=== PATIENT | female | born 1955 | race Caucasian/White ===

== ENCOUNTER → 2020-09-27 11:10 | Outpatient (CLI) | payer MEDICARE, SELFPAY ==
--- NOTE | ~2020-09-27 | DEXA_ITS ---
Bone Density Report Name: Sima Peres Age: 65 Sex: Female Ethnicity: White Date of : 1955 Indication: postmenopausal; screening for osteoporosis; parental hip fracture; prior fracture; Referring Provider: Lawrence Saxena Study: Bone densitometry was performed. Exam Date: September 27, 2020 Accession number: [id number] Bone Density: Region BMD T-score Z-score Classification AP Spine (L1-L4) 0.812 -2.1 -0.2 Osteopenia Femoral Neck (Left) 0.598 -2.3 -0.6 Osteopenia Total Hip (Left) 0.703 -2.0 -0.6 Osteopenia Femoral Neck (Right) 0.548 -2.7 -1.1 Osteoporosis Total Hip (Right) 0.632 -2.5 -1.2 Osteoporosis Total Hip Mean 0.668 -2.3 -0.9 Osteopenia World Health Organization criteria for BMD impression classify patients as: Normal (T-score at or above -1.0), Osteopenia (T-score between -1.0 and -2.5), or Osteoporosis (T-score at or below -2.5). 10-year Fracture Risk: FRAX not reported because: Some T-score for Spine Total or Hip Total or Femoral Neck at or below -2.5 Clinical Information Provided by Patient: Has had a low trauma fracture Parent has had a hip fracture Has used the following medications: Vitamin D, Calcium Patient maximum height was 62 Menopause Age: 53 No regular weight bearing exercise Does not regularly consume dairy products Drinks caffeinated beverages Onset of menses at age 11 Number of children 3 Impression: The patient has established osteoporosis, based on the Right Femoral Neck T-score and the existence of a prior fracture. The patient has risk factors, including: parental hip fracture, previous fracture. Discussion: HIGH RISK OF FRACTURE. BONE DENSITY IS UNDESIRABLY LOW AT ONE OR MORE SKELETAL SITES, CONSISTENT WITH POSTMENOPAUSAL OSTEOPOROSIS. This patient's lowest T-score, in a patient who has previously fractured, meets the World Health Organization's (WHO) criteria for severe osteoporosis. In untreated patients, the risk of osteoporotic fracture increases approximately two-fold for each 1.0 SD decrease in T-score. Low bone density is not the only risk factor for fracture; also consider factors such as patient's age, frailty or poor health, risk of falling, risk of injury, previous osteoporotic fracture, family history of osteoporosis, cigarette smoking, low body weight, etc. Not everyone with low bone mineral density has osteoporosis; osteomalacia and other metabolic bone disorders should also be considered. Patients who have osteoporosis should be evaluated for specific diseases and conditions (secondary causes) that may cause or contribute to bone loss. The [place] [employer] Endocrinologists (AACE) and National Osteoporosis Foundation (NOF) recommend pharmacologic intervention for all postmenopausal women whose T-score is in this range. The patient should follow a he
--- NOTE | ~2020-09-27 | MM_ITS ---
EXAMINATION: [place] [facility] [place] HISTORY: Screening mammogram TECHNIQUE: Craniocaudal and mediolateral oblique 3-D tomosynthesis images were obtained and synthetic 2-D images were generated. CAD analysis was submitted and interpreted. COMPARISON: 08/13/2019, 09/26/2016, 06/08/1950 BREAST PARENCHYMAL COMPOSITION: The breasts are almost entirely fatty. FINDINGS: There is no evidence of suspicious mass, calcification, or architectural distortion to sugg est malignancy in either breast. There has been no suspicious interval change. IMPRESSION: 1. No mammographic evidence of malignancy. 2. Recommend routine screening mammography in one year. BI-RADS Category 1: Negative Reviewed, dictated and finalized at location A. OLOGY RESIDENT
== END ==
PROVIDERS: PCP Family Medicine; Visit Provider Physician Assistant Medical
DX: Z12.31 Encounter for screening mammogram for malignant neoplasm of breast (principal); Z78.0 Asymptomatic menopausal state; M85.88 Other specified disorders of bone density and structure, other site; M85.852 Other specified disorders of bone density and structure, left thigh; M85.851 Other specified disorders of bone density and structure, right thigh; M81.0 Age-related osteoporosis without current pathological fracture
CPT/HCPCS: 77063; 77067; 77080

== ENCOUNTER 2021-07-06 11:17 | Emergency (ER) | payer MEDICARE, SELFPAY ==
--- NOTE | ~2021-07-06 | XR_ITS ---
EXAMINATION: XR foot RT min 3V DATE: 07/06/2021 11:50 INDICATION: Lateral right foot pain. Injury 8 days ago. TECHNIQUE: 4 views of right foot were obtained. COMPARISON: None. FINDINGS: Bone alignment is normal. No acute fracture. There are old healed fractures of fourth and f ifth proximal phalanges. There is diffuse osteopenia. There is screw fixation of medial malleolus. Th ere is mild osteoarthritis of first metatarsophalangeal joint and some of the interphalangeal joints. There are enthesophytes at the posterior and plantar aspects of calcaneal tuberosity. IMPRESSION: 1. Mild polyarticular osteoarthritis. Reviewed, dictated and finalized at location A.
[2021-07-06 11:33] VITALS: BP 106/70; PULSE 54; RESP 16; TEMP 36.5; O2SAT 98
--- NOTE | 2021-07-06 12:02 | ED.LOWEXIN ---
HPI - Extremity Injury (Lower) General Chief Complaint: Extremity Injury, Lower Stated Complaint: Right foot Pain Time Seen by Provider: 07/06/21 12:02 Source: patient Mode of arrival: ambulatory Limitations: no limitations History of Present Illness HPI Narrative: Sima Peres is a 65 yo female with a diagnosis of bipolar disorder and anxiety who [facility] with complaints of right lateral foot pain after rolling her ankle 8 days ago and aggravating applied dancing wedges her son's wedding this last weekend-we will move ankle and toes but continues to have pain on the lateral side of foot Related Data Home Medications Medication Instructions Recorded Confirmed aripiprazole 2 mg tablet 2 mg PO DAILY 11/02/19 07/06/21 topiramate 100 mg tablet 50 mg PO DAILY tablet 11/02/19 07/06/21 escitalopram oxalate 10 mg PO DAILY 07/06/21 07/06/21 Allergies Allergy/AdvReac Type Severity Reaction Status Date / Time No Known Allergies Allergy Verified 07/06/21 12:02 Review of Systems Review of Systems: CONSTITUTIONAL: Denies fever, chills, sweats. EYES: Denies visual changes, redness, discharge. ENT: Denies rhinorrhea, congestion, sore throat, otalgia. CARDIOVASCULAR: Denies chest pain, palpitations, edema. RESPIRATORY: Denies dyspnea, wheezing, cough GASTROINTESTINAL: Denies abdominal pain, nausea, vomiting, diarrhea. GENITOURINARY: Denies dysuria, hematuria, abnormal discharge SKIN: Denies rash or itching. NEUROLOGIC: Denies numbness, or focal weakness. PSYCHIATRIC: Denies anxiety or depression. Right foot pain PMFSH Past Medical History Medical History Broken arm (~03/2016) left radial History of chicken pox History of measles History of mumps Surgical History Surgical History H/O section H/O section History of gastric bypass History of knee replacement Hx of cholecystectomy Family History Family History Sibling No chronic problems Father , age 90 Depression, Onset Age: 90 Alzheimer's disease Mother Patient's mother is in good health Hearing loss Sibling Cancer Sibling No chronic problems Sibling No chronic problems Son No chronic problems Daughter No chronic problems Other Family history of alcoholism Family history of glaucoma Malignant neoplasm of prostate Social History Social History Alcohol intake: current Comments At time of signature, I agree with nursing past medical, surgical, social and family history. There is no relevant family history pertinent to the presenting complaint. Exam Narrative: GENERAL: This is a well-nourished, well-developed patient, in mild distress. HEAD: normocephalic, atraumatic. EYES: Sclera clear/white. Vision is grossly intact. EARS: External ears normal, . Hearing grossly intact. NOSE: External nose normal without nasal discharge, nares without redness, no rhinorrhea. THROAT: Mucous membranes moist, NECK: Neck supple, CARDIOVASCULAR: Regular rate and rhythm without murmurs, gallops, or rubs. RESPIRATORY: Clear to auscultation. Breath sounds equal bilaterally. No wheezes, rales, or rhonchi. GASTROINTESTINAL: Abdomen soft, SKIN: warm, intact with no suspicious lesions or rash, good texture and turgor. NEURO: awake, alert, and oriented to person, place and time. There were no obvious focal neurologic abnormalities. Steady gait EXTREMITIES: Normal range of motion. Right lateral foot pain able to move toes and ankle without difficulty, here is slightly tender and swollen 2+ pedal pulse BACK: Nontender without deformity Course Course Emergency Course: Patient comes with complaints of foot pain on the lateral side after rolling ankle 8 days ago and then aggravating it by doing a lot of p
== END 2021-07-06 12:35 | disposition home or self-care (01) ==
PROVIDERS: Emergency Provider Nurse Practitioner; PCP Family Medicine
DX: S93.601A Unspecified sprain of right foot, initial encounter (principal); X50.9XXA Other and unspecified overexertion or strenuous movements or postures, initial encounter; F31.9 Bipolar disorder, unspecified; F41.9 Anxiety disorder, unspecified
CPT/HCPCS: 73630; 99213; G0463

== ENCOUNTER → 2021-11-06 15:57 | Outpatient (CLI) | payer MEDICARE, SELFPAY ==
--- NOTE | ~2021-11-06 | MM_ITS ---
EXAMINATION: MM screening [facility] BI w rod HISTORY: Screening TECHNIQUE: Craniocaudal and mediolateral oblique 3-D tomosynthesis images were obtained and synthetic 2-D images were generated. CAD analysis was submitted and interpreted. COMPARISON: Comparison to multiple prior studies sequentially, with oldest reviewed study dated 08/12. BREAST PARENCHYMAL COMPOSITION: There are scattered areas of fibroglandular density. FINDINGS: There are prior surgical changes of breast reduction. There is no evidence of suspicious ma ss, calcification, or architectural distortion to suggest malignancy in either breast. There has been no suspicious interval change. IMPRESSION: 1. No mammographic evidence of malignancy. 2. Recommend routine screening mammography in one year. BI-RADS Category 1: Negative Reviewed, dictated and finalized at location A. OYEE RELATIONS ADMINISTRATOR
== END ==
PROVIDERS: PCP Family Medicine; Visit Provider Family Medicine
DX: Z12.31 Encounter for screening mammogram for malignant neoplasm of breast (principal)
CPT/HCPCS: 77063; 77067

== ENCOUNTER 2022-03-14 02:06 | Day surgery (SDC) | payer MEDICARE, SELFPAY ==
[2022-03-05 13:33] VITALS: BMI 26.1
[2022-03-14 12:42] VITALS: BP 150/79; PULSE 77; RESP 16; TEMP 36.7; O2SAT 98; BMI 26.2
[2022-03-14] MEDS: LACTATED RINGERS 1,000 ML 150 ML IV CONT (13:04)
--- NOTE | 2022-03-14 13:08 | PM.HPGS ---
History of Present Illness History of Present Illness Consent: Risks, benefits, and alternatives have been discussed and questions answered. Patient agrees to proceed with procedure. Chief complaint: hx of colon polyps Narrative: Sima Peres is a 66 year old female Referred for colon cancer screening. she has had polyps removed in the past. Review of Systems Review of Systems: All systems reviewed & are unremarkable except as noted in HPI and below PMFSH Past Medical History Medical History Broken arm (~03/2016) left radial History of chicken pox History of measles History of mumps Surgical History Surgical History H/O section H/O section History of gastric bypass History of knee replacement Hx of cholecystectomy Family History Family History Sibling No chronic problems Father , age 90 Depression, Onset Age: 90 Alzheimer's disease Mother Patient's mother is in good health Hearing loss Sibling Cancer Sibling No chronic problems Sibling No chronic problems Son No chronic problems Daughter No chronic problems Other Family history of alcoholism Family history of glaucoma Malignant neoplasm of prostate Social History Social History Smoking status: Former smoker Alcohol intake: former Alcohol use details: former alcohol abuse, 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 does not want to list Living arrangements: with family Spiritual care concerns: No Meds Home Medications and Allergies Home Medications Medication Instructions Recorded Confirmed Type aripiprazole 2 mg tablet 2 mg PO DAILY 11/02/19 03/14/22 History topiramate 100 mg tablet 50 mg PO DAILY tablet 11/02/19 03/14/22 History escitalopram oxalate 10 mg PO DAILY 07/06/21 03/14/22 History efinaconazole 10 % topical 1 applic TOPICAL QHS 336 Days #8 ml 03/01/22 03/14/22 Rx solution with applicator Allergies Allergy/AdvReac Type Severity Reaction Status Date / Time No Known Allergies Allergy Verified 03/14/22 12:51 Vital Signs Vital Signs - 24 hr 03/14/22 12:42 Temperature 36.7 C Pulse Rate 77 Respiratory Rate 16 Blood Pressure 150/79 H Pulse Oximetry 98 Exam Resp: Auscultation: clear to auscultation bilaterally Cardio: Rate: regular rate Rhythm: regular rhythm GI: GI Palp: Yes Soft to palpation and No Tenderness to palpation present (GI) Assessment and Plan Assessment and plan (1) Colon cancer screening: Code(s): Z12.11 - Encounter for screening for malignant neoplasm of colon Status: Acute Assessment and Plan: Colonoscopy with possible biopsy or polypectomy or cautery or injection of substances.
--- NOTE | 2022-03-14 13:12 | WPDANESEPPF ---
Anes - Initial Pre Proc Eval Procedure: Operation Date: 03/14/22 14:00 Proposed Procedures p Screening Colonoscopy - Varinder Grant MD Date/Time: 03/14/22 13:12 Surgeon: Varinder Grant MD Pre Op Diagnosis: hx of colon polyps Patient Data Age: 66 Gender: F Height: 1.55 m Weight: 62.8 kg Last Vital Signs Temp 36.7 C 03/14/22 12:42 Pulse 77 03/14/22 12:42 Resp 16 03/14/22 12:42 BP 150/79 H 03/14/22 12:42 Pulse Ox 98 03/14/22 12:42 Allergies Allergy/AdvReac Type Severity Reaction Status Date / Time No Known Allergies Allergy Verified 03/14/22 12:51 Home Medications Medication Instructions Recorded Confirmed Type aripiprazole 2 mg tablet 2 mg PO DAILY 11/02/19 03/14/22 History topiramate 100 mg tablet 50 mg PO DAILY tablet 11/02/19 03/14/22 History escitalopram oxalate 10 mg PO DAILY 07/06/21 03/14/22 History efinaconazole 10 % topical 1 applic TOPICAL QHS 336 Days #8 ml 03/01/22 03/14/22 Rx solution with applicator Patient hx anesthesia problems: none Family hx anesthesia problems: none Results Review: All pre-operative results and documents have been reviewed as part of the pre-operative evaluation. [facility] Past Medical History Medical History Broken arm (~03/2016) left radial History of chicken pox History of measles History of mumps Surgical History Surgical History H/O section H/O section History of gastric bypass History of knee replacement Hx of cholecystectomy Family History Family History Sibling No chronic problems Father , age 90 Depression, Onset Age: 90 Alzheimer's disease Mother Patient's mother is in good health Hearing loss Sibling Cancer Sibling No chronic problems Sibling No chronic problems Son No chronic problems Daughter No chronic problems Other Family history of alcoholism Family history of glaucoma Malignant neoplasm of prostate Social History Social History Smoking status: Former smoker Alcohol intake: former Alcohol use details: former alcohol abuse, 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 does not want to list Living arrangements: with family Spiritual care concerns: No Anes - Eval Final PreProcedure Day of Procedure 03/14/22 13:12 Patient weight: overweight Heart: regular rate and rhythm Lungs: clear to auscultation and normal air movement Airway: Mallampati scale class II Neurological: alert and oriented Last oral intake: >/= 8 hours ASA classification: III Emergent: no Anesthetic plan: proceed Anesthesia type and monitoring: general GIVS and standard monitoring Results Review: All pre-operative results and documents have been reviewed as part of the pre-operative evaluation. Informed Consent: The patient's anesthetic plan and its attendant risks and benefits were discussed with the patient/family/POA. Questions were solicited and answers provided to the satisfaction of the patient/family/POA.
[2022-03-14 13:35] VITALS: BP 116/56; PULSE 58; RESP 20; O2SAT 98
[2022-03-14 13:45] VITALS: BP 116/63; PULSE 55; RESP 22; O2SAT 99
[2022-03-14 13:55] VITALS: BP 114/60; PULSE 52; RESP 22; O2SAT 99
== END 2022-03-14 14:26 | disposition home or self-care (01) ==
PROVIDERS: PCP Family Medicine; Visit Provider Internal Medicine Gastroenterology
PROC: 0DJD8ZZ Inspection of Lower Intestinal Tract, Via Natural or Artificial Opening Endoscopic (ICD-10-PCS; CPT 45378; principal; 2022-03-14 14:00)
DX: Z12.11 Encounter for screening for malignant neoplasm of colon (principal); D12.5 Benign neoplasm of sigmoid colon; K57.30 Diverticulosis of large intestine without perforation or abscess without bleeding; Z98.84 Bariatric surgery status; Z96.659 Presence of unspecified artificial knee joint
CPT/HCPCS: 45385; 88305; J2704; J7120

== ENCOUNTER → 2022-11-13 12:22 | Outpatient (CLI) | payer MEDICARE, SELFPAY ==
--- NOTE | ~2022-11-13 | XR_ITS ---
XR chest 2V DATE: 11/13/2022 12:49 INDICATION: Midsternal chest pain TECHNIQUE: 2 views COMPARISON: None FINDINGS: Normal heart size. No hilar or mediastinal enlargement. Bilateral hyperinflation, suggestin g COPD. No pulmonary infiltrate or consolidation, pleural effusion or pulmonary vascular congestion o r pneumothorax. Status post cholecystectomy. Osteopenia. IMPRESSION: Bilateral hyperinflation; no active cardiopulmonary disease Osteopenia Status post cholecystectomy Reviewed, dictated and finalized at location L. ICE TEAM LEAD
== END ==
PROVIDERS: PCP Family Medicine; Visit Provider Physician Assistant
DX: R07.89 Other chest pain (principal); R91.8 Other nonspecific abnormal finding of lung field; M85.88 Other specified disorders of bone density and structure, other site; Z90.49 Acquired absence of other specified parts of digestive tract
CPT/HCPCS: 71046

== ENCOUNTER → 2023-01-22 14:43 | Outpatient (CLI) | payer MEDICARE, SELFPAY ==
--- NOTE | ~2023-01-22 | MM_ITS ---
EXAMINATION: MM screening [facility] BI w rod HISTORY: Screening mammogram TECHNIQUE: Craniocaudal and mediolateral oblique 3-D tomosynthesis images were obtained and synthetic 2-D images were generated. CAD analysis was submitted and interpreted. COMPARISON: 11/06/2021, 09/27/2020 bilateral screening mammogram examinations BREAST PARENCHYMAL COMPOSITION: There are scattered areas of fibroglandular density. FINDINGS: There is no evidence of suspicious mass, calcification, or architectural distortion to sugg est malignancy in either breast. There has been no suspicious interval change. IMPRESSION: 1. No mammographic evidence of malignancy. 2. Recommend routine screening mammography in one year. BI-RADS Category 1: Negative Reviewed, dictated and finalized at location A.
== END ==
PROVIDERS: PCP Family Medicine; Visit Provider Family Medicine
DX: Z12.31 Encounter for screening mammogram for malignant neoplasm of breast (principal)
CPT/HCPCS: 77063; 77067

== ENCOUNTER → 2023-09-23 13:52 | Outpatient (CLI) | payer MEDICARE, SELFPAY ==
--- NOTE | ~2023-09-23 | XR_ITS ---
EXAMINATION: XR thoracic spine 3V DATE: 09/23/2023 13:59 INDICATION: Mid back pain. TECHNIQUE: 3 views of thoracic spine were obtained. COMPARISON: Chest 2 views 11/13/2022 FINDINGS: There is 9 degrees levocurvature of thoracic spine. There is kyphosis of thoracic spine. Th ere is a compression fracture of T8 with 3/5 loss of height. There is mild chronic anterior wedging o f T12 vertebral body. There is mildly decreased disc height at multiple levels in mid and upper thora cic spine. There are endplate osteophytes at most levels. Surgical clips in the right upper quadrant are likely from cholecystectomy. IMPRESSION: 1. T8 compression fracture, new from 11/13/2022. 2. Mild thoracic spondylosis. Reviewed, dictated and finalized at location A. RDOUS WASTE MATERIAL TECHNICIAN
== END ==
PROVIDERS: PCP Family Medicine; Visit Provider Physician Assistant
DX: M47.894 Other spondylosis, thoracic region (principal)
CPT/HCPCS: 72072

== ENCOUNTER 2024-02-13 09:10 | Outpatient (CLI) | payer MEDICARE, SELFPAY ==
--- NOTE | ~2024-02-13 | MM_ITS ---
EXAMINATION: MM screening [facility] BI w rod HISTORY: Screening TECHNIQUE: Craniocaudal and mediolateral oblique 3-D tomosynthesis images were obtained and synthetic 2-D images were generated. CAD analysis was submitted and interpreted. COMPARISON: Comparison to multiple prior studies sequentially, with oldest reviewed study dated 10/12. BREAST PARENCHYMAL COMPOSITION: The breasts are almost entirely fatty. FINDINGS: There is no evidence of suspicious mass, calcification, or architectural distortion to sugg est malignancy in either breast. There has been no suspicious interval change. IMPRESSION: 1. No mammographic evidence of malignancy. 2. Recommend routine screening mammography in one year. BI-RADS Category 1: Negative Reviewed, dictated and finalized at location A.
== END 2024-02-13 09:11 ==
LOC: MICIMG 09:11
PROVIDERS: PCP Family Medicine; Visit Provider Family Medicine
DX: Z12.31 Encounter for screening mammogram for malignant neoplasm of breast (principal)
CPT/HCPCS: 77063; 77067

== ENCOUNTER 2024-06-22 14:33 | Outpatient (CLI) | payer MEDICARE, SELFPAY ==
--- NOTE | ~2024-06-22 | XR_ITS ---
EXAM: XR lumbar spine 2-3V DATE: 06/22/2024 15:05 HISTORY: no injury left hip pain for 5 days . COMPARISON: None available. FINDINGS: Cholecystectomy clips. Decreased mineralization. 5 nonrib-bearing lumbar-type vertebral roosevelt dies. Pedicles intact. 2 mm retrolistheses at L1-2 through L3-4. Vertebral body heights preserved. Mu ltilevel mild disc space narrowing and marginal osteophytosis. Vacuum phenomenon at L1-2. Multilevel severe mid and lower lumbar facet hypertrophy. No fracture or dislocation. IMPRESSION: Multilevel degenerative disc disease, moderate at L1-2. Multilevel grade 1 listheses. Sev ere mid and lower lumbar facet arthropathy. Reviewed, dictated and finalized at location K. IMPRESSION: Multilevel degenerative disc disease, moderate at L1-2. Multilevel grade 1 listheses. Severe mid and lower lumbar facet arthropathy.
--- NOTE | ~2024-06-22 | XR_ITS ---
XR hip LT 2V w AP pelvis Ordering provider: ONUR Blackburn-C History: . no injury left hip pain for 5 days . Comparison: March 14, 2016 FINDINGS: BONES: No acute fracture or dislocation. HIP JOINT SPACES: Normal. SACROILIAC JOINT SPACES/LUMBAR SPINE: The sacroiliac joint spaces shows bilateral sacroiliacs. Mild d egenerative changes of the visualized lower lumbar spine. PUBIC SYMPHYSIS: Normal. SOFT TISSUES: Normal. IMPRESSION: No acute osseous abnormality pelvis and left hip. Reviewed, dictated and finalized at location A.
== END 2024-06-22 14:34 ==
PROVIDERS: PCP Family Medicine; Visit Provider Nurse Practitioner Family
DX: M25.552 Pain in left hip (principal); M51.36 Other intervertebral disc degeneration, lumbar region
CPT/HCPCS: 72100; 73502

== ENCOUNTER 2024-10-23 10:09 | Outpatient (CLI) | payer MEDICARE, SELFPAY ==
--- NOTE | ~2024-10-23 | XR_ITS ---
EXAMINATION: XR foot RT min 3V DATE: 10/23/2024 10:21 INDICATION: Right foot pain. TECHNIQUE: 4 views of right foot were obtained. COMPARISON: Right foot radiographs 07/06/2021 FINDINGS: Bone alignment is normal. No fracture. There are old healed fractures of fourth and fifth p roximal phalanges. There is screw fixation of medial malleolus. There is mild osteoarthritis of first metatarsophalangeal joint and some of the interphalangeal joints and midfoot joints. IMPRESSION: 1. Mild polyarticular osteoarthritis. Reviewed, dictated and finalized at location A. OSITION BOARD PRESS OPERATOR
== END 2024-10-23 10:10 | disposition home or self-care (01) ==
LOC: GOSHIMG 10:10
PROVIDERS: PCP Family Medicine; Visit Provider Nurse Practitioner Family
DX: M19.071 Primary osteoarthritis, right ankle and foot (principal)
CPT/HCPCS: 73630

== ENCOUNTER 2025-02-15 11:35 | Outpatient (CLI) | payer MEDICARE, SELFPAY ==
--- NOTE | ~2025-02-15 | MM_ITS ---
EXAMINATION: MM screening patti BI w rod HISTORY: Screening TECHNIQUE: Craniocaudal and mediolateral oblique 3-D tomosynthesis images were obtained and synthetic 2-D images were generated. CAD analysis was submitted and interpreted. COMPARISON: Comparison to multiple prior studies sequentially, with oldest reviewed study dated 09/11. BREAST PARENCHYMAL COMPOSITION: Not dense: There are scattered areas of fibroglandular density. FINDINGS: There is no evidence of suspicious mass, calcification, or architectural distortion to sugg est malignancy in either breast. There has been no suspicious interval change. IMPRESSION: 1. No mammographic evidence of malignancy. 2. Recommend routine screening mammography in one year. BI-RADS Category 1: Negative Reviewed, dictated and finalized at location A.
== END 2025-02-15 11:36 | disposition home or self-care (01) ==
LOC: MICIMG 11:36
PROVIDERS: PCP Family Medicine; Visit Provider Family Medicine
DX: Z12.31 Encounter for screening mammogram for malignant neoplasm of breast (principal)
CPT/HCPCS: 77063; 77067

== ENCOUNTER 2025-04-01 07:55 | Outpatient (CLI) | payer MEDICARE, SELFPAY ==
--- OUTSIDE RECORDS SUMMARY | 2025-04-01 08:16 | XMS_ITS | Clinical Summary ---
Author Organization [facility] Address [address] [place] [id number] Phone Care Team Providers Care Housekeeping Cleaner Name Role Phone Michael Fortune MD Primary Care Provider [phone] Allergies No known active allergies Medications ARIPiprazole (ABILIFY) 2 MG Tablet 04/18/2022 Active buPROPion (WELLBUTRIN) 150 MG XL tablet once daily 06/01/2022 Active Vitamin D3 1000 UNIT Tablet Take by mouth. With calcium Active Cyanocobalamin (VITAMIN B-12) 1000 MCG Tablet Take 1,000 mcg by mouth. Active Topiramate 50 MG Tablet 04/18/2022 Active Active Problems No known active problems Social History Tobacco Use Types Packs/Day Years Used Date Smoking Tobacco: Never Smokeless Tobacco: Never Tobacco Cessation:Counseling Given: Not Answered Alcohol Use Standard Drinks/Week Comments Not Currently 0 (1 standard drink = 0.6 oz pur e alcohol) Comments No Sex and Gender Information Value Date Recorded Sex Assigned at Not on file Legal Sex Female 2:33 PM CDT Gender Identity Not on file Sexual Orientation Not on file Last Filed Vital Signs Vital Sign Reading Time Taken Comments Blood Pressure 122/66 06/05/2023 10:08 AM CDT Pulse 67 06/05/2023 10:08 AM CDT Temperature 36.3 C (97.4 F) 06/05/2023 10:08 AM CDT Respiratory Rate 20 06/05/2023 10:08 AM CDT Oxygen Saturation 98% 06/05/2023 10:08 AM CDT Inhaled Oxygen Concentration - - Weight - - Height - - Body Mass Index - - Plan of Treatment Health Maintenance Due Date Last Done Comments DEXA Bone Density 1955 Hepatitis C Virus (HCV) Screening 1955 Mammogram 1955 Colonoscopy 1998 Colorectal Cancer Screening 1998 Cologuard 2003 Immunochemical Fecal Occult Blood 2003 Influenza Immunization (#1) 07/12/202407/13, 08/04/2021, 11/02/2019 SARS-COV-2 Immunization ( season) 2024 07/31/2022, 03/15/2022, 08/22/2021, Additional history exists Respiratory Syncytial Virus (RSV) Immunization (Adult) (1 - 1-dose 75+ series) 2028 DTaP/Tdap/Td Immunization Discontinued 07/27/2021 TdaP Immunization Completed 07/27/2021 Pneumococcal Immunization (50+ years) Completed 03/01/2022, 07/22/2020 Zoster Immunization Completed 03/01/2022, 05/10/2020, 11/02/2019 Hepatitis B Immunization Aged Out No longer eligible based on patient's age to complete this topic Meningococcal Immunization (ACWY) Aged Out No longer eligible based on patient's age to complete this topic Rotavirus Immunization Aged Out No lo nger eligible based on patient's age to complete this topic Insurance Care Teams Housekeeping Cleaner Relationship Specialty Start Date End Date Michael Fortune MD [address] [place] [address] [address] [place] [address] PCP - General Family Medicine 07/07/22
--- OUTSIDE RECORDS SUMMARY | 2025-04-01 08:16 | XMS_ITS | Clinical Summary ---
Author Organization [email or web address] Address [address] [place] [address] Care Team Providers Care Data Sciences Director Name Role Phone Michael Fortune MD Primary Care Provider [phone]- [phone] Source Comments [email or web address],non-owned Affiliates and Associated Physician Practices is amultiple site organization consisting of ambulatory clinics and hospital sitesin [place], [place], [place] and [place]. This disclosure is being madepursuant to the Care Everywhere program and may not contain all information available regarding this patient. Last updated 18.[email or web address] Allergies No known active allergies Medications * Be aware that medications may not be up to date on this document. Alwaysverify current medications with the patient. ARIPiprazole (ABILIFY) 2 MG tablet 04/18/2022 Active topiramate (TOPAMAX) 50 MG tablet 04/18/2022 Active buPROPion XL 24hr (WELLBUTRIN-XL) 150 MG tablet once daily 06/01/2022 Acti ve Multiple Vitamins-Mineral s (MULTIVITAMIN ADULTS PO) Active cyanocobalamin (VITAMIN B-12) 1000 MCG tablet Take 1,000 mcg by mouth once daily Active vitamin D3 (CHOLECALCIFEROL ) 25 MCG (1000 UNITS) tablet Take by mouth once daily Active Active Problems Problem Noted Date Diagnosed Date Primary osteoarthritis of right knee 04/21/2019 Overview (06/12/2022): Added automatically from request for surgery [id number] Unspecified fracture of unspecified wrist and tony nd, sequela 03/26/2016 Closed fracture of neck of radius 03/23/2016 Closed fracture of olecranon process of ulna Epigastric discomfort 04/21/2014 Hyperlipidemia 04/21/2014 Family History Medical History Relation Name Comments Hepatitis Brother Alzheimer's Disease Father None Known Mother Relation Name Status Comments Brother Father Mother Alive Social History Tobacco Use Types Packs/Day Years Used Date Smoking Tobacco: Former Cigarettes Q uit: 1979 Smokeless Tobacco: Never Alcohol Use Standard Drinks/Week Comments Not Currently 0 (1 standard drink = 0.6 oz pure alcohol) none since april 2020, relapse in 60's Comments Unknown Sex and Gender Information Value Date Recorded Sex Assigned at Not on file Legal Sex Female 9:51 AM CDT Gender Identity Not on file Sexual Orientation Not on file Last Filed Vital Signs Vital Sign Reading Time Taken Comments Blood Pressure 123/59 06/12/2022 11:52 AM CDT Pulse 63 06/12/2022 11:52 AM CDT Temperature 36.8 C (98.2 F) 06/12/2022 11:52 AM CDT Respiratory Rate 18 06/12/2022 11:52 AM CDT Oxygen Saturation 99% 06/12/2022 11:52 AM CDT Inhaled Oxygen Concentration - - Weight 68.5 kg (151 lb) 06/12/2022 11:52 AM CDT Height 154.9 cm (5' 1) 06/12/2022 11:52 AM CDT Body Mass Index 28.53 06/12/2022 11:52 AM CDT Plan of Treatment Health Maintenance Due Date Last Done Comments BONE DENSITY TESTING 1953 COLOGUARD (AGES 45-75) - COL ON CA SCREENING 1953 COLON MONITORING 1953 COLONOSCOPY - COLON CA SCREENING 1953 CT COLONOGRAPHY - COLON CA SCREENING 1953 Colorectal Cancer Screening 1953 FIT - COLON CA SCREENING 1953 FLEX SIG - COLON CA SCREENING 1953 LIPID TESTING 1953 MAMMOGRAM 1953 DTAP/TDAP/TD VACCINES (1 - Tdap) 1972 PNEUMOCOCCAL VACCINE 50+ (1 of 1 - PCV) 2003 ZOSTER VACCINE (1 of 2) 2003 COVID-19 VACCINE (2023-2 5 season) 2024 DEPRESSION SCREENING 11/11/2024 MEDICARE AWV CALENDAR YEAR 2024 INFLUENZA VACCINE (Season Ended) 2025 SCREENING FOR DIABETES 02/26/2026 02/26/2023 Respiratory Syncytial Virus (RSV) Vaccine Pt: or over 60 yrs (1 - 1-dose 75+ series) 2028 HEPATITIS C SCREENING Completed 02/26/2023 , 06/12/2022 HEPATITIS B VACCINE Aged Out No longe r eligible based on patient's age to complete this topic HIB VACCINE Aged Out No longer eligi ble based on patient's age to complete this topic HPV VACCINE Aged Out No longer eligi ble based on patient's age to complete this topic MENINGOCOCCAL (Group B) VACCINE SHARED DECISION-MAKING Aged Out No longer eligible based on patient's age to complete this topic MENINGOCOCCAL GROUPS A/C/Y/W VACCINE Aged Out No longer eligible b ased on patient's age to complete this topic Goals Goal Patient Goal Type Associated Problems Recent Progress Patient-Stated? Author Medication Management General On track( 022 12:04 PM CDT) No Lucinda Al, RN Note: Expected end date: Ongoing Interventions: Take all medications as prescribed Let your doctor know right away about any changes in your medications Make sure to request a refill of your medication at least one week prior to your last dose Procedures Procedure Name Priority Date/Time Associated Diagnosis Comments COMPREHENSIVE METABOLIC PANEL Routine 02/26/2023 8:49 AM CDT Chronic hepatitis C without hepatic coma HEPATITIS C RNA QUANTITATIVE Routine 02/26/2023 8:49 AM CDT Chronic hepatitis C without hepatic coma from Last 3 Months or Most Recently Relevant to Health Maintenance Results * HEPATITIS C RNA QUANTITATIVE (02/26/2023 8:49 AM CDT) Hepatitis C Virus Quantitation HCV Not Detected IU/mL [facility] INSURANCE BILL Hepatitis C Virus Log 10 NOT AVAILABLE [facility] INSURANCE BILL Comment:Result cannot be obt ained for this observation. Test Information [facility] INSURANCE BILL Comment: The quantitative range of this assay is 15 IU/mL to 100 million IU/mL. FASTING Blood BLOOD SPECIMEN / Unknown 02/26/2023 8:49 AM CDT 02/26/2023 Narrative [facility] INSURANCE BILL - 02/27/2023 7:08 PM CDT A courtesy copy of this report has been sent to [phone] Resulting Agency Comment Lab Testing performed at: [facility] [id number] Angie Chatman [employer] [facility] - CHEMISTRY [place] Final Result [facility] INSURANCE BILL [address] [place] [address] * (ABNORMAL) COMPREHENSIVE METABOLIC PANEL (02/26/2023 8:49 AM CDT) Glucose 99 70 - 99 mg/dL [facility] INSURANCE BILL BUN 9 8 - 27 mg/dL [facility] INSURANCE BILL Creatinine 0.74 0.57 - 1.00 mg/dL [facility] INSURANCE BILL eGFR by CKD-EPI 88 >59 mL/min/1.7 3 [facility] INSURANCE BILL BUN/Creatinine Ratio 12 12 - 28 [facility] INSURANCE BILL Sodium 145(H) 134 - 144 mmol/L [facility] INSURANCE BILL Potassium 4.2 3.5 - 5.2 mmol/L [facility] INSURANCE BILL Chloride 107(H) 96 - 106 mmol/L [facility] INSURANCE BILL CO2 26 20 - 29 mmol/L [facility] INSURANCE BILL Calcium 9.2 8.7 - 10.3 mg/dL [facility] INSURANCE BILL Protein Total 6.4 6.0 - 8.5 g/dL [facility] INSURANCE BILL Albumin 4.4 3.8 - 4.8 g/dL [facility] INSURANCE BILL Globulin Total 2.0 1.5 - 4.5 g/dL [facility] INSURANCE BILL Albumin/Globulin Ratio 2.2 1.2 - 2.2 [facility] INSURANCE BILL Bilirubin Total 0.2 0.0 - 1.2 mg/dL [facility] INSURANCE BILL Alkaline Phosphatase 60 44 - 121 IU/L [facility] INSURANCE BILL AST 15 0 - 40 IU/L [facility] INSURANCE BILL ALT 19 0 - 32 IU/L [facility] INSURANCE BILL Comment:FASTING Blood BLOOD SPECIMEN / Unknown 02/26/2023 8:49 AM CDT 02/26/2023 Narrative Resulting Agency Comment Lab Testing performed at: [facility] [place] [address] [id number] [place] Angie Chatman [employer] [facility] - CHEMISTRY [place] Final Result [facility] INSURANCE BILL [address] [place] [address] from Last 3 Months or Most Recently Relevant to Health Maintenance Insurance [id number] [id number] Care Teams Data Sciences Director Relationship Specialty Start Date End Date Michael Fortune MD [address] [place] [id number] PCP - General 03/15/22
--- OUTSIDE RECORDS SUMMARY | 2025-04-01 08:16 | XMS_ITS | Clinical Summary ---
Author Organization [facility] Address [address] [address] [place] [id number] Phone Care Team Providers Care Dispatcher Bus And Trolley Name Role Phone Michael Fortune MD Primary Care Provider +1- [phone] Allergies No known active allergies Medications FLUoxetine (PROZAC) 10 mg capsule Take 10 mg by mouth daily. Active ondansetron (ZOFRAN ODT) 4 mg Tablet, Rapid Dissolve Place 1 Tab under tongue every 8 hours as needed for Nausea/Emes is. 10 Tab 0 04/22/2014 Active topiramate (TOPAMAX) 25 mg capsule Take 1 Cap by mouth every 12 hours. 30 Cap 0 04/22/2014 Active Active Problems Problem Noted Date Diagnosed Date Epigastric discomfort 04/21/2014 Morbid obesity 04/21/2014 Hyperlipidemia 04/21/2014 Family History Medical History Relation Name Comments Cancer Maternal Grandfather prostat e Relation Name Status Comments Maternal Grandfather Social History Tobacco Use Types Packs/Day Years Used Date Smoking Tobacco: Former Alcohol Use Standard Drinks/Week Comments No 0 (1 standard drink = 0.6 oz pur e alcohol) Comments No Sex and Gender Information Value Date Recorded Sex Assigned at Not on file Legal Sex Female 3:12 PM CDT Gender Identity Not on file Sexual Orientation Not on file Occupation Industry Job Start Date Job End Date Not on file Not on file Not on file Not on file Last Filed Vital Signs Vital Sign Reading Time Taken Comments Blood Pressure 114/74 08/10/2022 11:18 AM CDT Pulse 75 08/10/2022 11:18 AM CDT Temperature 36.7 C (98.1 F) 08/10/2022 11:18 AM CDT Respiratory Rate 18 08/10/2022 11:18 AM CDT Oxygen Saturation 97% 08/10/2022 11:18 AM CDT Inhaled Oxygen Concentration - - Weight 88.6 kg (195 lb 6.4 oz) 04/22/2014 6:13 A M CDT Height 154.9 cm (5' 1) 08/10/2022 11:18 AM CDT Body Mass Index 36.92 04/21/2014 5:45 AM CDT Plan of Treatment Health Maintenance Due Date Last Done Comments DTAP/TDAP/TD VACCINES (1 - Tdap) 1972 BREAST CANCER SCREENING 1993 COLORECTAL SCREENING 1998 Colorectal Cancer Screening 1998 FIT-DNA Q 3 years 1998 FIT/FOBT Q 1 year 1998 Flex Sig/CT Colonography Q 5 years 1998 PNEUMOCOCCAL VACCINE 50+ YEARS (1 of 1 - PCV) 09/11/20 03 ZOSTER VACCINE (1 of 2) 2003 RSV VACCINE (60+ or ) (1 - Risk 60-74 years 1-dose series) 2013 OSTEOPOROSIS SCREENING 2018 INFLUENZA VACCINE (#1) 2024 Medical Devices Implanted Type Area Foundry Metallurgist Device Identifier Shelf Expiration Date Model / Serial / Lot Seamguard Bio 60 [id number] - [id number] Implanted:Qty: 4 on 04/21/2014 by Ty De La Cruz MD at [facility] N/A: St[employer] 10/21/2016 [id number] / / [id number] Seamguard Bio 60 [id number] - [id number] Implanted:Qty: 1 on 04/21/2014 by Ty De La Cruz MD at [facility] N/A: Stomach [employer] 10/21/2016 [id number] / / [id number] Insurance [facility] DUAL [employer]PLETE Advance Directives For more information, please contact: [phone] * Full Code (Latest Code Status on File) Date Activated Date Inactivated Comments 04/21/2014 7:08 AM 04/22/2014 2:18 PM * Full Code Date Activated Date Inactivated Comments 04/21/2014 5:39 AM 04/21/2014 7:08 AM Care Teams Dispatcher Bus And Trolley Relationship Specialty Start Date End Date Michael Fortune MD PCP - General Family Practice 04/13/14
--- OUTSIDE RECORDS SUMMARY | 2025-04-01 08:16 | XMS_ITS | Patient Health Record ---
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 on all medications including potential benefits, side effects, risks. Educated on proper dosing schedule and importance of compliance. Second generation antipsychotics (SGAs) have metabolic syndrome issues with weight gain, increase in prolactin, increased waist circumference, increased lipids, and increased glucose. Thus routine monitoring of weight, metabolic labs, etc. is indicated. A general rank ordering of antipsychotics that have the greatest to the least risk of metabolic effects is olanzapine, quetiapine, risperidone, ziprasidone, and aripiprazole. However, weight gain can occur with all of these drugs and considerable variability exists among patients receiving the same drug regarding the risk of metabolic effects. Anti-psychotic agents not only increase the risk of metabolic disorder, they also increase the risk of CVA, akathisia, and movement disorders including EPS or tardive dyskinesia (more common with first generation antipsychotics) and more. 01/06/2025 Other Cleint reports she is still having problems wiwth her ankle, which she injuring o her last trip. She and her are goint to [place] and [place] in February. She states she has gotten better with not interrpting her 's activity to ask questions that can wait. She focused on the improvements she has been making to her behaviors which have improved her mental health. Therapist actively listened to client and asked questions for clarification. The therapist then provided a supportive intervention by helping client maintain her current level of functioning through the showing of acceptance. DARRELL=10 moderate 02/01/2025 Other Client reports her 90+ y/o mother has been to the ER twice in the past week due to passing out twice. Mother is currently staying with client's sister in [place] for now. There are many decisions that need to be made in regard to her mother's care and client's own upcoming plans. Therapist actively listened to client and utilized a cognitive behavioral intervention to explore her options (resources) and strategies to manage her own stress level. PHQ=9 mild DARRELL=7 mild 09/08/2024 Other Client reports she and her have been doing a lot of traveling out west and visiting friends, family, and seeing the sights. They also took a trip to [place] for a sikhism gathering. She states she is doing better with getting orgainized with grocery shopping and meal planning. She saw the neurologist about her restless leg syndrome. She reports she is to go to a family reunion in a couple of weeks. She is looking forward to this. Therapist actively listened to client and utilized a supportive intervention by providing support and validation for the progress has been making. 10/21/2024 Other Overall feels stable, continue current medications. Refill sent in today. Patient educated on all medications including potential benefits, side effects, risks. Educated on proper dosing schedule and importance of compliance. Consider increase in Abilify next apt if irritability continues. Continue counseling with Kelsi 11/09/2024 Other Client reports Bjorn was very enjoyable with a 1 and 2 y/o grandchildren. Client, avel, and another couple are going to [place] for 2 weeks, just avter the first of the year. Client has been increasingly anxious about the trip (what will she wear, will she say the wrong thing, etc.). Therapist actively listened to client and utilized a cognitive behavioral intervention to help her explore strategies to minimize her anxiety on the trip. PHQ=12 moderate DARRELL=12 moderate 03/04/2025 Other Client is feeling down. She states her daughter is losing her job due to [employer] bed[employer] cuts. She states she is also upset that her is becoming more lethargic in not wanting to go for walks, putting on weight. She states she gets more frustrated every day with his malaise. Therapist actively listened to client and utilized a cognitive behavioral intervention to help client explore strategies to feel better about herself and more willing and confident to do things by herself. PHQ=13 moderate DARRELL=13 moderate 03/11/2025 Other Stable on current medication regimen, continue at current doses. -Refills sent in today -No concerns today Patient educated on all medications including potential benefits, side effects, risks. Educated on proper dosing schedule and importance of compliance. Cont counseling -Assessment and treatment plan reviewed with patient. -Compliance with treatment plan importance discussed. -Discussed the risks/benefits of this medication -Discussed medication side effects. -Contact office if symptoms worsen. -Discussed that it can take up to 6-8 weeks to see full therapeutic effects of psychotropic medications. -Crisis prevention hotline 513. Plan Of Treatment Next Appt Details Provider Name:Kelsi Taylor , 04/08/2025 04:00:00 PM, [address], [address], [place], [address], Provider Name:Kelsi Taylor , 05/05/2025 03:00:00 PM, [address], [address], [place], [address], Provider Name:Cici Graham uriostegui, 06/02/2025 01:00:00 PM, [address], [address], [place], [address], Insurance Providers Payer Name Payer Address Payer Phone Subscriber Number Group Number Insured Name Patient Relationship to Insured Coverage Start Date Coverage End Date [facility] Medicare Replacement/ Advantage - Ppo [address] [address] [place] [phone] [id number] ESPERANZA DELACRUZ Self - patient is the insured Medical (General) History Medical History History ICD Code Problems: Alcohol dependence Bipolar affective disorder, current epis ode depression Cannabis dependence Chronic hepatitis C Chronic post-traumatic stress disorder Generalized anxiety disorder History of intravenous drug abuse Mild neurocognitive disorder Nicotine dependence Primary insomnia Restless legs , Surgical History Surgery Date(Month/Year) Reconstructive surgery Wrist repair (092680641) 2015 Bariatric operative procedure (940561638 ) 2015 Breast surgery (14950) Other Augmentation of bilateral breasts ([id number] [id number]) plastic surgery Procedure on upper arm (881876611) 2017 Repair of elbow (889457872) 2015 Removal of gallbladder (75155) Repair of ankle (043606575) 1987 Replacement of right knee joint (1309508 04) 06/01/2019
--- NOTE | 2025-04-28 04:55 | P.SLEEP_ITS ---
Sleep Study Date of Study: 04/01/25 Ordering Provider: Michael Fortune MD Interpreting Physician: Audrey Abdullahi MD Sleep Study Type: Polysomnogram Height: 1.55 m Weight: 59.421 kg Body Mass Index: 24.7 Neck Circumference (inches): 12 [place]: 5 Reason for Sleep Study Poor sleep, restless legs symptoms starting 2 years ago, treated with medication Sleep History Sima Peres is a 69-year-old woman with poor sleep associated with uncomfortable feelings in her legs at night. She never awakens from sleep short of breath. She never wakes at night with heartburn, belching or coughing.??She occasionally snores, rarely snores loudly enough that others complain. She rarely has trouble sleeping when she has a cold. She never wakes up gasping for breath during the night. She rarely sweats excessively at night. She never notices her heart pounding or beating irregularly during the night. She occasionally falls asleep during the day. She never falls asleep involuntarily, never falls asleep while driving. She does not have loss of muscle tone with strong emotion. She never feels paralyzed on waking or falling asleep. She occasionally experiences vivid dreams upon waking or falling asleep. She rarely feels afraid of going to sleep. She never has nightmares. She occasionally recalls her dreams. She occasionally has thoughts racing through her mind. She rarely feels sad or depressed. She frequently feels anxiety. She never notices parts of her body jerk. She never kicks during the night. She frequently feels crawling or aching feelings in her legs, and frequently feels leg pain at night. She does not have morning jaw pain, rarely grinds her teeth at night. She occasionally feels bothered by pain during the day, is rarely awakened by pain during the night. She occasionally wakes up feeling stiff in the morning, occasionally wakes feeling sore or achy in the morning. She rarely awakens with pain in her neck, spine, or joints. Normal bedtime is between 11:00 p.m and 12:30 a.m., falling asleep within 15-20 minutes, waking once at night due to severity of her RLS symptoms. While awake, she may read, watch TV or eat. She may be able to return to sleep within 15 to 30 minutes. She reports getting 4 hours of sleep per night. These awakenings occur between 2-3 am. She sometimes takes naps in the day. A short nap is not refreshing. She is drowsy for an hour after waking. She feels her best in the morning or afternoon. Habits:??Tobacco: former smoker Caffeine:1 cup daily. Alcohol:none Recreational substances: none PMFSH Past Medical History Medical History (Updated 04/28/25 @ 06:27 by Audrey Abdullahi MD) Restless leg syndrome Anxiety Bipolar 1 disorder History of chicken pox History of mumps History of measles Broken arm (~03/2016) left radial Surgical History Surgical History H/O section H/O section History of knee replacement History of gastric bypass Hx of cholecystectomy Family History Family History Sibling No chronic problems Father , age 90 Depression, Onset Age: 90 Alzheimer's disease Mother Patient's mother is in good health Hearing loss Sibling Cancer Sibling No chronic problems Sibling No chronic problems Son No chronic problems Daughter No chronic problems Other Family history of alcoholism Family history of glaucoma Malignant neoplasm of prostate Social History Social History Smoking status: Former smoker Alcohol intake: former Alcohol use details: former alcohol abuse, 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 does not want to list, Last use: vapes THC currently Lack of Transportation: No Lack of Food: Never True Current Housing: I Have Housing Concerned About Future Housing: No Difficulty Paying Gas/Electric Bills: No Difficulty Paying for Meds: No Education: Bachelor's Degree Difficulty w/ Childcare or Family Care: No Living arrangements: with family Occupation/Education: retired Gender identity (if verbalized by the patient): Female Spiritual care concerns: No Medications Home Medications ?Medication ?Instructions ?Recorded ?Confirmed ?Type finasteride 5 mg tablet 5 mg PO 03/01/23 03/19/25 History ferrous sulfate 325 mg (65 mg 325 mg PO BID #200 tabs 06/24/24 03/19/25 Rx iron) tablet mecobalamin (vitamin B12) 1,000 1,000 mcg PO .QOD 09/21/24 03/19/25 History mcg chewable tablet trazodone 50 mg tablet 50 mg PO QHS #90 tabs 10/28/24 03/19/25 Rx pramipexole 0.75 mg tablet 0.75 mg PO QHS #90 tabs 11/12/24 03/19/25 Rx aripiprazole 2 mg tablet mg PO 12/04/24 03/19/25 History bupropion HCl 300 mg 24 hr tablet, mg PO 12/04/24 03/19/25 History extended release topiramate 50 mg tablet mg PO 12/04/24 03/19/25 History sulfamethoxazole 800 1 tablet PO Q12H #20 tabs 12/25/24 03/19/25 Rx mg-trimethoprim 160 mg tablet (Bactrim DS) alendronate 70 mg tablet 70 mg PO WEEKLY #12 tabs 02/11/25 03/19/25 Rx amoxicillin 875 mg-potassium 1 tablet PO Q12H #14 tabs 03/19/25 03/19/25 Rx clavulanate 125 mg tablet magnesium hydroxide 400 mg (170 mg 400 mg PO DAILY #90 tabs 03/19/25 03/19/25 Rx magnesium) chewable tablet zolpidem 10 mg tablet (Ambien) 10 mg PO QHS PRN sleep study #1 03/31/25 Rx tablet Sleep Procedure A full night polysomnogram using the [employer] multi-channel system recorded the standard physiologic parameters including EEG, EOG, submentalis EMG, anterior tibialis EMG, EKG, body position, nasal and oral airflow using nasal pressure sensor and thermistor. Respiratory parameters of chest and abdominal movements were recorded with Respiratory Inductance Plethysmography belts. Oxygen saturation was recorded by pulse oximetry. Video monitoring was also performed. Sleep stages, periodic limb movements, and EEG arousals were scored in 30 second epochs according to the criteria of the AASM Scoring Manual. The Apnea-Hypopnea Index was calculated using CMS guidelines for definition of hypopnea while scoring respiratory events. She self-administered Ambien 10 mg at the start of the study. During the night, she rolled frequently in the bed, causing the leg leads to detach. The tech re- applied these leg leads, and eventually had to tape them in place. The patient was uncomfortable due to her legs, wanted to walk in the room, asked to order food for delivery however this is not allowed during testing. She wanted to leave at 5:12 am, felt that she had poorer sleep than at home due to not being able to have Epsom salt bath for her legs, not having a snack. Sleep Architecture The total recording time was 381.7 minutes. The total sleep time was 223.0 minutes. Sleep latency was 12.0 minutes. REM latency was 136.5 minutes. Sleep efficiency was 58.4%. The patient had 53 awakenings for an awakening index of 14.3. Wake after sleep onset time was 146.5 minutes. The patient spent 21.0 minutes, 9.4% of total sleep time in Stage N1. The patient spent 115.5 minutes, 51.8% in Stage N2. The patient spent 60.5 minutes, 27.1% in Stage N3. The patient spent 26.0 minutes, 11.7% in Stage REM sleep. Respiratory Analysis The patient had 18 hypopneas, 21 obstructive apneas, 3 mixed apneas, and 1 central apnea for an overall Apnea Hypopnea Index of 11.6. The REM Apnea Hypopnea Index was 0. The NREM Apnea Hypopnea Index was 13.1. The patient had a Central Apnea Hypopnea Index of 0.3. There were n0 Respiratory Effort Related Arousals. The Respiratory Disturbance Index is 12.9 events per hour. There was no evidence of Antoni-Knowles Respirations. Arousals There were 131 total arousals for an arousal index of 35.2. There were 45 spontaneous arousals for an index of 12.1. There were 25 arousals due to respiratory events for an index of 6.7. There were 42 arousals due to periodic limb movements for an index of 11.3. There were 20 arousals due to isolated limb movements for an index of 5.4. Periodic Limb Movements The patient had 27 isolated limb movements with an index of 7.3. The patient had 60 periodic limb movements with an index of 16.1. Patient had a total of 87 limb movements with a total limb movement index of 23.4. Oximetry Data The patient had an average oxygen saturation of 93.6% in sleep with a minimum oxygen saturation of 85% and a maximum oxygen saturation of 97%. The patient had 42 oxygen desaturations that were 4% or greater resulting in an Oxygen Desaturation Index of 11.3. The patient spent 5.7 minutes, 1.5% of total sleep time with an oxygen saturation below 88%. Snoring Profile Snoring was mild. Cardiac Profile The EKG showed normal sinus rhythm, average pulse rate of 57.7 bpm with a minimum pulse of rate of 51 bpm and a maximum pulse rate of 82 bpm. No arrhythmias noted. EEG Profile Unremarkable, no evidence of seizures. Assessment and Plan Assessment and Plan (1) Restless leg syndrome: Code(s): G25.81 - Restless legs syndrome Status: Acute (2) Obstructive sleep apnea: Code(s): G47.33 - Obstructive sleep apnea (adult) (pediatric) Status: Acute Assessment and Plan: This basic polysomnogram on 04/01/2025 shows mild obstructive sleep apnea, overall apnea hypopnea index is 11.6 using a 4% Medicare criteria, desaturation to 85%, and 5.7 minutes spent below 88%. She has a medical co-morbidity of bipolar depression, and with this, she is a candidate for PAP therapy. She was uncomfortable during the study, had to walk around the room due to leg discomfort. This is one of her main sleep disruptors, and she has been treated for restless legs syndrome. Her sleep was also interrupted by being hungry. She did not have a snack available to eat overnight. The last half of the night was worse as far as sleep quality. She was having constant shifts between wake and light sleep sleep stages. Her sleep was disrupted by her restless legs and periodic limb movements. She had low sleep efficiency during the night, 58%. I recommend an in-lab CPAP titration to confirm appropriate setting. She has disrupted sleep due to leg issues, and her medications have been carefully titrated by her primary care doctor. This is a difficult situation. She needs to bring food next visit to have something to eat at night, and consider Epsom salt bath for legs before coming to the sleep lab. Another alternative is a trial of APAP for her ANTON and see if this is tolerated. If you want help with management, consider Sleep Referral. Treating her sleep apnea may improve some of her leg movements. See below. (3) PLMD (periodic limb movement disorder): Code(s): G47.61 - Periodic limb movement disorder Status: Acute Assessment and Plan: She has a history of restless legs syndrome, has been treated for several years without much improvement in symptoms. This study shows periodic limb movement disorder with increased periodic and isolated limb movements, increased arousals due to limb movements, and her disrupted sleep during the night. She moved frequently, causing the leg leads to detach. She had to have these taped on later in the night. Her discomfort required her to walk in the room during the study to relieve discomfort. The leads coming off likely caused an underestimation of the amount of leg movement. This needs to be addressed to improve sleep quality. She had a normal ferritin level on Sep 19, 2024, 122 ng/mL, Her medication list includes bupropion which can be associated with leg movements in sleep as well as akathisia, dystonia and tremor. This can also be associated with bruxism, not seen on this sleep study. She takes aripiprazole which can help RLS and also worsen it. She takes pramipexole 0.75 mg HS, a treatment for RLS and periodic limb movement disorder. Taking aripiprazole with pramipexole may decrease effectiveness of each and increase side effects. Her last office visit states that she may restart iron and magnesium. Magnesium lotion is an option, and weight blanket might help. Data The data obtained during this sleep study is adequate for interpretation. Certification This sleep study has been reviewed by a board certified sleep medicine physician.
[2025-04-28 06:09] VITALS: BMI 24.7
== END 2025-04-02 07:14 | disposition home or self-care (01) ==
PROVIDERS: PCP Family Medicine; Visit Provider Family Medicine
DX: G25.81 Restless legs syndrome (principal); G47.33 Obstructive sleep apnea (adult) (pediatric)
CPT/HCPCS: 95810